=== PATIENT | female | born 1990 | race American Indian/Alaskan Native ===

== ENCOUNTER 2017-05-29 20:50 | Emergency (ER) | payer MEDICAID ==
[2017-05-29 22:02] LABS: Basophils % (Auto) 0.7 % (0.0-1.8); Hematocrit 38.1 % (30.3-42.9); Hemoglobin 13.1 gm/dl (10.1-14.3); Mean Corpuscular HGB Conc 34 % (30-34); Mean Corpuscular Hemoglobin 29 pg (28-32); Mean Corpuscular Volume 85 fl (79-97); Platelet Count 168 K/mm3 (140-440); Red Blood Count 4.49 M/mm3 (3.65-5.03); Red Cell Distribution Width 13.1 % (13.2-15.2); White Blood Count 3.5 K/mm3 (4.5-11.0)
[2017-05-29 22:20] LABS: Anion Gap 18 mmol/L; BUN/Creatinine Ratio 13.33; Blood Urea Nitrogen 8 mg/dL (7-17); Calcium 9.3 mg/dL (8.4-10.2); Carbon Dioxide 23 mmol/L (22-30); Chloride 101.3 mmol/L (98-107); Glucose 95 mg/dL (65-100); Sodium 138 mmol/L (137-145)
[2017-05-29 23:10] LABS: Bilirubin,Urine NEG (Negative); Blood,Urine LG (Negative); Ketones,Urine NEG (Negative); Leukocyte Esterase,Urine NEG (Negative); Mucus,Urine FEW /HPF; Nitrite,Urine NEG (Negative); Urobilinogen,Urine < 2.0 mg/dL (<2.0)
[2017-05-29 23:16] LABS: RBC,Urine > 182.0 /HPF (0.0-6.0)
[2017-05-30 02:22] VITALS: BP 109/72
--- NOTE | 2017-05-30 02:54 | Emergency Department Report ---
HPI - General Chief Complaint: Abdominal Pain Time Seen by Provider: 05/30/17 02:34 - HPI HPI: Patient complains of right upper quadrant pain, nausea. 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 She run out of her current pain medications as she came to the ED. Patient denies any vomiting, diarrhea or fever. Patient is currently on her cycle and states that the pain is worse on the cycle. ED Past Medical Hx - Past Medical History Hx Hypertension: No Hx CVA: No Hx Heart Attack/AMI: No Hx Congestive Heart Failure: No Hx Diabetes: Yes (GDM) Hx Deep Vein Thrombosis: No Hx Pulmonary Embolism: No Hx GERD: No Hx Liver Disease: No Hx Renal Disease: No Hx Sickle Cell Disease: No Hx Arthritis: No Hx Headaches / Migraines: No Hx Seizures: No Hx Kidney Stones: No Hx Psychiatric Treatment: No Hx Asthma: No Hx COPD: No Hx Tuberculosis: No Hx Dementia: No Hx HIV: No Additional medical history: Chronic Right knee pain,fatty liver - Surgical History Hx Coronary Stent: No Hx Open Heart Surgery: No Hx Pacemaker: No Hx Internal Defibrillator: No Hx Cholecystectomy: No Hx Appendectomy: No Hx Breast Surgery: No Additional Surgical History: R knee - Social History Smoking Status: Never Smoker Substance Use Type: None - Medications Home Medications: Home Medications Medication Instructions Recorded Confirmed Last Taken Type Pnv with Ca,No.72/Iron/FA 1 each PO QDAY #30 tablet 08/13/15 04/05/16 Unknown Rx [ Plus Tablet] Acetaminophen/Codeine [Tylenol 1 tab PO Q6H PRN #15 tab 10/16/15 04/05/16 Unknown Rx /Codeine # 3 tab] Nitrofurantoin [place]/M-Cryst 100 mg PO Q12HR #14 capsule 10/16/15 04/05/16 Unknown Rx [Macrobid CAP] Phenazopyridine [Pyridium] 200 mg PO BID #6 tab 10/16/15 04/05/16 Unknown Rx oxyCODONE /ACETAMINOPHEN [Percocet 2 tab PO Q6HR #30 tab 04/05/16 Unknown Rx 5/325] traMADol [Ultram] 50 mg PO Q6HR PRN #14 tablet 05/30/17 Unknown Rx ED Review of Systems ROS: Stated complaint: ABD PAIN Other details as noted in HPI Comment: All other systems reviewed and negative ENT: as per HPI Gastrointestinal: abdominal pain, nausea Physical Exam - Physical Exam Vital Signs: Vital Signs 05/29/17 05/30/17 21:36 02:18 Temperature 98 F 97.8 F Pulse Rate 78 82 Respiratory 18 16 Rate Blood Pressure 134/74 109/72 O2 Sat by Pulse 100 Oximetry Physical Exam: GENERAL: The patient is well-developed well-nourished [] HEENT: Normocephalic. Atraumatic. Extraocular motions are intact. Patient has moist mucous membranes. NECK: Supple. No meningitic signs are noted. There is no adenopathy noted. CHEST/LUNGS: Clear to auscultation. There is no respiratory distress noted. HEART/CARDIOVASCULAR: Regular. There is no tachycardia. There is no gallop rub or murmur. ABDOMEN: Abdomen is soft, nontender. Patient has normal bowel sounds. There is no abdominal distention. SKIN: There is no rash. There is no edema. There is no diaphoresis. NEURO: The patient is awake, alert, and oriented. The patient is cooperative. The patient has no focal neurologic deficits. The patient has normal speech. Cranial nerves II through XII grossly intact, no drift. Moves all extremities well MUSCULOSKELETAL: There is no evidence of acute injury. ED Course Vital Signs 05/29/17 05/30/17 21:36 02:18 Temperature 98 F 97.8 F Pulse Rate 78 82 Respiratory 18 16 Rate Blood Pressure 134/74 109/72 O2 Sat by Pulse 100 Oximetry ED Medical Decision Making - Lab Data Result diagrams: 05/29/17 21:47 05/29/17 21:47 Critical care attestation.: If time is entered above; I have spent that time in minutes in the direct care of this critically ill patient, excluding procedure time. ED Disposition Clinical Impression: Abdominal pain Qualifiers: Abdominal location: generalized Qualified Code(s): R10.84 - Generalized abdominal pain Disposition: -01 TO HOME OR SELFCARE Is pt being admited?: No Does the pt Need Aspirin: No Condition: Stable Instructions: Abdominal Pain (ED) Prescriptions: traMADol [Ultram] 50 mg PO Q6HR PRN #14 tablet PRN Reason: Pain Referrals: PRIMARY CARE, [Primary Care Provider] - 3-5 Days
== END 2017-05-30 03:34 | disposition home or self-care (01) ==
LOC: ED 20:50
DX: R10.84 Generalized abdominal pain (principal)
CPT/HCPCS: 36415; 80048; 81001; 85025

== ENCOUNTER 2017-08-19 14:01 | Emergency (ER) | payer MEDICAID ==
--- NOTE | 2017-08-19 14:56 | Emergency Department Report ---
Chief Complaint: Abdominal Pain Stated Complaint: ABDOMINAL PAIN Time Seen by Provider: 08/19/17 14:56 - HPI History of Present Illness: Patient reports that she is having abdominal pain and both sides of her abdomen with some nausea. She reports blurred vision and headache. She is also complaining of left back pain with increased urination. Denies any urinary burning frequency or urgency. She said her abdominal pain is 10 out of 10. She says she's had multiple head injuries in the past and she sees a neurologist off [facility] she says she gets frequent headaches and this one is located on the right side frontal ear for headache. She said that she had a test scan done last year but she doesn't know what is called. When I described the scan to her it sounds like she had a MRI. She said her doctor told her that the test said that she has acute wearing the back of her had but she didn't say anything else. Denies any vomiting. Denies any vaginal bleeding. - ROS Review of Systems: All systems are negative unless stated in HPI above - Exam Vital Signs: Vital Signs 08/19/17 14:16 Temperature 98.2 F Pulse Rate 77 Respiratory 18 Rate Blood Pressure 108/66 O2 Sat by Pulse 99 Oximetry Physical Exam: Gen: This is a 27-year-old female well-nourished well-developed in no acute distress. Abdomen: Patient reports tenderness to both sides of abdomen with palpation but she does not seem to be in any distress with palpation. No guarding or rebound tenderness. Normal bowel sounds in all quadrant. Mini neurological exam: GCS of 15, speech is clear and fluid, normal gait. Alert and oriented 3 MSE screening note: Focused history and physical exam performed. Due to findings the following was ordered: ED Medical Decision Making - Medical Decision Making MDM: Patient screened by provider in triage area. Appropriate protocol initiated and patient to be seen in main ED by Dr. DE LA CRUZ Disposition for MSE Condition: Stable Instructions: Abdominal Pain (ED)
[2017-08-19 15:13] LABS: Basophils % (Auto) 0.5 % (0.0-1.8); Eosinophils % (Auto) 2.4 % (0.0-4.3); Hematocrit 40.6 % (30.3-42.9); Hemoglobin 13.4 gm/dl (10.1-14.3); Mean Corpuscular HGB Conc 33 % (30-34); Mean Corpuscular Hemoglobin 28 pg (28-32); Mean Corpuscular Volume 85 fl (79-97); Platelet Count 182 K/mm3 (140-440); Red Blood Count 4.77 M/mm3 (3.65-5.03); Red Cell Distribution Width 12.9 % (13.2-15.2); White Blood Count 3.6 K/mm3 (4.5-11.0)
[2017-08-19 15:15] LABS: Alanine Aminotransferase 17 units/L (7-56); Albumin 4.3 g/dL (3.9-5); Alkaline Phosphatase 82 units/L (35-129); Anion Gap 17 mmol/L; BUN/Creatinine Ratio 10; Blood Urea Nitrogen 5 mg/dL (7-17); Calcium 8.9 mg/dL (8.4-10.2); Carbon Dioxide 24 mmol/L (22-30); Chloride 101.5 mmol/L (98-107); Glucose 89 mg/dL (65-100); Lipase 28 units/L (13-60); Potassium 3.8 mmol/L (3.6-5.0); Sodium 139 mmol/L (137-145); Total Protein 8.7 g/dL (6.3-8.2)
[2017-08-19 17:06] LABS: Bilirubin,Urine NEG (Negative); Blood,Urine NEG (Negative); Ketones,Urine NEG (Negative); Leukocyte Esterase,Urine TR (Negative); Mucus,Urine FEW /HPF; Nitrite,Urine NEG (Negative); Protein,Urine <15 mg/dL mg/dL (Negative); Urobilinogen,Urine < 2.0 mg/dL (<2.0)
[2017-08-19] MEDS ORDERED: NORCO 5/325 PO ONE (23:51)
[2017-08-19 23:53] VITALS: BP 100/66
--- NOTE | 2017-08-20 00:21 | Emergency Department Report ---
HPI - General Chief Complaint: Abdominal Pain Time Seen by Provider: 08/19/17 14:56 - HPI HPI: This is a 27-year-old female presents to the emergency department, dropped off by a friend, with complaints of a right-sided headache that she believes is a migraine, and some right upper quadrant abdominal pain. Patient says that the headache is been going on intermittently over the past 1- 2 weeks. She has a history of migraines and says that she usually will try Tylenol and Advil but it has only been giving some transient relief. She denies any slurred speech or any other neurological deficits. She says that she has been dealing with more chronic abdominal pains but usually affects her in the left flank and/or back but that has gone away and today it is causing some pain in the right upper quadrant. She denies any vaginal bleeding, vaginal discharge but does have some increased urination. She has a past medical history of gestational diabetes, fatty liver disease and these migraine headaches. She has a primary care physician but cannot currently with her name. No recent travel or sick contacts at home. ED Past Medical Hx - Past Medical History Hx Hypertension: No Hx CVA: No Hx Heart Attack/AMI: No Hx Congestive Heart Failure: No Hx Diabetes: Yes (GDM) Hx Deep Vein Thrombosis: No Hx Pulmonary Embolism: No Hx GERD: No Hx Liver Disease: No Hx Renal Disease: No Hx Sickle Cell Disease: No Hx Arthritis: No Hx Headaches / Migraines: No Hx Seizures: No Hx Kidney Stones: No Hx Psychiatric Treatment: No Hx Asthma: No Hx COPD: No Hx Tuberculosis: No Hx Dementia: No Hx HIV: No Additional medical history: Chronic Right knee pain,fatty liver - Surgical History Hx Coronary Stent: No Hx Open Heart Surgery: No Hx Pacemaker: No Hx Internal Defibrillator: No Hx Cholecystectomy: No Hx Appendectomy: No Hx Breast Surgery: No Additional Surgical History: R knee - Social History Smoking Status: Unknown if ever smoked Substance Use Type: None - Medications Home Medications: Home Medications Medication Instructions Recorded Confirmed Last Taken Type Pnv,Calcium 72/Iron/Folic Acid 1 each PO QDAY #30 tablet 08/13/15 04/05/16 Unknown Rx [ Plus Tablet] Acetaminophen/Codeine [Tylenol 1 tab PO Q6H PRN #15 tab 10/16/15 04/05/16 Unknown Rx /Codeine # 3 tab] Nitrofurantoin [place]/M-Cryst 100 mg PO Q12HR #14 capsule 10/16/15 04/05/16 Unknown Rx [Macrobid CAP] Phenazopyridine [Pyridium] 200 mg PO BID #6 tab 10/16/15 04/05/16 Unknown Rx oxyCODONE /ACETAMINOPHEN [Percocet 2 tab PO Q6HR #30 tab 04/05/16 Unknown Rx 5/325] traMADol [Ultram] 50 mg PO Q6HR PRN #14 tablet 05/30/17 Unknown Rx ED Review of Systems ROS: Stated complaint: ABDOMINAL PAIN Other details as noted in HPI Comment: All other systems reviewed and negative Constitutional: denies: chills, fever Eyes: denies: eye pain, eye discharge, vision change ENT: denies: ear pain, throat pain Respiratory: denies: cough, shortness of breath, wheezing Cardiovascular: denies: chest pain, palpitations Gastrointestinal: abdominal pain. denies: nausea, vomiting Genitourinary: frequency. denies: dysuria, discharge Musculoskeletal: denies: arthralgia, myalgia Skin: denies: rash, lesions Neurological: headache. denies: numbness, paresthesias Physical Exam - Physical Exam Vital Signs: Vital Signs 08/19/17 08/19/17 08/19/17 14:16 22:19 23:53 Temperature 98.2 F 98.6 F Pulse Rate 77 81 73 Respiratory 18 16 16 Rate Blood Pressure 108/66 Blood Pressure 123/80 100/66 [Right] O2 Sat by Pulse 99 98 100 Oximetry 08/19/17 23:56 Temperature Pulse Rate Respiratory 16 Rate Blood Pressure Blood Pressure [Right] O2 Sat by Pulse Oximetry Physical Exam: GENERAL: The patient is well-developed well-nourished. HENT: Normocephalic. Atraumatic. Patient has moist mucous membranes. EYES: Extraocular motions are intact. Pupils equal reactive to light bilaterally. No nystagmus. NECK: Supple. Trachea is midline. CHEST/LUNGS: Clear to auscultation. There is no respiratory distress noted. HEART/CARDIOVASCULAR: Regular. There is no tachycardia. There is no gallop rub or murmur. ABDOMEN: Abdomen is soft. Right upper quadrant tenderness to palpation. No guarding or rebound tenderness. Patient has normal bowel sounds. There is no abdominal distention. SKIN: Skin is warm and dry. NEURO: The patient is awake, alert, and oriented. The patient is cooperative. The patient has no focal neurologic deficits. The patient has normal speech. MUSCULOSKELETAL: There is no tenderness or deformity. There is no limitation range of motion. There is no evidence of acute injury. ED Course Vital Signs 08/19/17 08/19/17 08/19/17 14:16 22:19 23:53 Temperature 98.2 F 98.6 F Pulse Rate 77 81 73 Respiratory 18 16 16 Rate Blood Pressure 108/66 Blood Pressure 123/80 100/66 [Right] O2 Sat by Pulse 99 98 100 Oximetry 08/19/17 23:56 Temperature Pulse Rate Respiratory 16 Rate Blood Pressure Blood Pressure [Right] O2 Sat by Pulse Oximetry ED Medical Decision Making - Lab Data Result diagrams: 08/19/17 14:44 08/19/17 14:44 - Radiology Data Radiology results: report reviewed EXAM: US ABDOMEN LIMITED HISTORY: upper abd pain TECHNIQUE: Routine sonographic evaluation was obtained of the right upper outer quadrant. FINDINGS: The gallbladder is normal in size and wall thickness. Stones are not seen. The common bile duct measures 3.5 millimeters which is normal. The pancreas is not well visualized because of bowel gas. The liver is normal size and reveals diffusely increased echotexture compatible with hepatic steatosis. There are no focal hepatic lesions. Free fluid is not seen. IMPRESSION: Normal-appearing gallbladder and biliary tree. Hepatic steatosis. Transcribed By: PACO Dictated By: PENNY CISNEROS MD Electronically Authenticated By: PENNY CISNEROS MD Signed Date/Time: 08/19/172049 - Medical Decision Making 27-year-old female presents with a right-sided headache that she feels is consistent with previous migraine headaches. She does not have any focal, motor or sensory deficits in her cranial nerves are intact. She also complains of some right upper quadrant pain which is a change for her as she says she has been having some more chronic left sided abdominal pains but that has not bother her today. Her labs are mostly unremarkable. No leukocytosis, elect to let upper maladies, renal insufficiency or glucose abnormalities. Normal belly labs including bilirubin, lipase and LFTs. Since the patient has no deficits and her headache is consistent with previous migraines, did not feel that CT imaging of the head was necessary at this time. An ultrasound was done of the right upper quadrant that did not show any abnormalities. She was given a single [place] and upon reevaluation she says she is feeling improved. She says that she has good follow-up with primary care and was given a referral for neurology to discuss her migraines. She will return to the ER if any worsening of her symptoms or any acute distress. - Differential Diagnosis migraine, tension headache, cluster headache, cholelithiasis, cholecystitis Critical Care Time: No Critical care attestation.: If time is entered above; I have spent that time in minutes in the direct care of this critically ill patient, excluding procedure time. ED Disposition Clinical Impression: Headache Qualifiers: Headache type: unspecified Headache chronicity pattern: episodic headache Intractability: not intractable Qualified Code(s): R51 - Headache Abdominal pain Qualifiers: Abdominal location: right upper quadrant Qualified Code(s): R10.11 - Right upper quadrant pain Disposition: TO HOME OR SELFCARE Is pt being admited?: No Condition: Stable Instructions: Migraine Headache (ED), Acute Headache (ED), Abdominal Pain (ED) Additional Instructions: Please follow-up with your primary care physician in the next few days. I have also given urinary referral for a local neurologist, Dr. Shen, to follow up regarding your migraine headaches. Return to the emergency Department with any worsening of your symptoms or any acute distress. Referrals: MAX BOLAÑOS MD [Primary Care Provider] - 3-5 Days LINDA SHEN MD [Staff Physician] - 3-5 Days Time of Disposition: 01:16
--- NOTE | 2017-08-20 00:55 | Ultrasound Report ---
FINAL REPORT EXAM: US ABDOMEN LIMITED HISTORY: upper abd pain TECHNIQUE: Routine sonographic evaluation was obtained of the right upper outer quadrant. FINDINGS: The gallbladder is normal in size and wall thickness. Stones are not seen. The common bile duct measures 3.5 millimeters which is normal. The pancreas is not well visualized because of bowel gas. The liver is normal size and reveals diffusely increased echotexture compatible with hepatic steatosis. There are no focal hepatic lesions. Free fluid is not seen. IMPRESSION: Normal-appearing gallbladder and biliary tree. Hepatic steatosis.
== END 2017-08-20 01:32 | disposition home or self-care (01) ==
LOC: ED 14:01
DX: R10.11 Right upper quadrant pain (principal); R51 Headache
CPT/HCPCS: 36415; 76705; 80053; 81001; 81025; 82962; 83690; 85025

== ENCOUNTER 2018-02-24 13:21 | Emergency (ER) | payer MEDICAID ==
[2018-02-24] MEDS ORDERED: TYLENOL PO ONE (15:19)
--- NOTE | 2018-02-24 15:21 | Emergency Department Report ---
ED Lower Extremity HPI - General Chief Complaint: Extremity Injury, Lower Stated Complaint: LOWER LEFT LEG PAIN Time Seen by Provider: 02/24/18 15:16 Source: patient Mode of arrival: Ambulatory Limitations: No Limitations - History of Present Illness Initial Comments: This is a 27-year-old female nontoxic, well nourished in appearance, no acute signs of distress presents to the ED with c/o of left knee and left ankle pain x1 day. Patient stated that she was walking down 2 flight of stairs and twisted left ankle and landed on left knee. Patient stated that she did not have any trauma to the head or any other extremities. Patient denies any joint redness, joint swelling, fever, chills, nausea, vomiting, chest pain or shortness breath. Patient denies abnormal or decreased gait. Patient stated allergies to Ibuprofen. Denies significant PMH. MD Complaint: knee injury, ankle injury -: days(s) (1) Injury: Knee: Left, Ankle: Left Type of Injury: blunt Place: home Severity: mild Severity scale (0 -10): 8 Improves With: immobilization Worsens With: movement, palpation Context: fall, direct blow Associated Symptoms: swelling, able to partially bear weight, ambulatory. denies: snap/pop sensation, numbness, tingling, unable to bear weight - Related Data Previous Rx's Medication Instructions Recorded Last Taken Type Pnv,Calcium 72/Iron/Folic Acid 1 each PO QDAY #30 tablet 08/13/15 Unknown Rx [ Plus Tablet] Acetaminophen/Codeine [Tylenol 1 tab PO Q6H PRN #15 tab 10/16/15 Unknown Rx /Codeine # 3 tab] Nitrofurantoin [place]/M-Cryst 100 mg PO Q12HR #14 capsule 10/16/15 Unknown Rx [Macrobid CAP] Phenazopyridine [Pyridium] 200 mg PO BID #6 tab 10/16/15 Unknown Rx oxyCODONE /ACETAMINOPHEN [Percocet 2 tab PO Q6HR #30 tab 04/05/16 Unknown Rx 5/325] traMADol [Ultram] 50 mg PO Q6HR PRN #14 tablet 05/30/17 Unknown Rx Acetaminophen 500 mg PO Q8H PRN #30 tablet 02/24/18 Unknown Rx Allergies Allergy/AdvReac Type Severity Reaction Status Date / Time ibuprofen [From Motrin] AdvReac Vomiting Verified 08/13/15 06:23 ED Review of Systems ROS: Stated complaint: LOWER LEFT LEG PAIN Other details as noted in HPI Constitutional: denies: chills, fever Eyes: denies: eye pain, eye discharge, vision change ENT: denies: ear pain, throat pain Respiratory: denies: cough, shortness of breath, wheezing Cardiovascular: denies: chest pain, palpitations Endocrine: no symptoms reported Gastrointestinal: denies: abdominal pain, nausea, diarrhea Genitourinary: denies: urgency, dysuria, discharge Musculoskeletal: arthralgia. denies: back pain, joint swelling Skin: denies: rash, lesions Neurological: denies: headache, weakness, paresthesias Psychiatric: denies: anxiety, depression Hematological/Lymphatic: denies: easy bleeding, easy bruising ED Past Medical Hx - Past Medical History Hx Hypertension: No Hx CVA: No Hx Heart Attack/AMI: No Hx Congestive Heart Failure: No Hx Diabetes: Yes (GDM) Hx Deep Vein Thrombosis: No Hx Pulmonary Embolism: No Hx GERD: No Hx Liver Disease: No Hx Renal Disease: No Hx Sickle Cell Disease: No Hx Arthritis: No Hx Headaches / Migraines: No Hx Seizures: No Hx Kidney Stones: No Hx Psychiatric Treatment: No Hx Asthma: No Hx COPD: No Hx Tuberculosis: No Hx Dementia: No Hx HIV: No Additional medical history: Chronic Right knee pain,fatty liver - Surgical History Hx Coronary Stent: No Hx Open Heart Surgery: No Hx Pacemaker: No Hx Internal Defibrillator: No Hx Cholecystectomy: No Hx Appendectomy: No Hx Breast Surgery: No Additional Surgical History: R knee - Social History Smoking Status: Never Smoker Substance Use Type: None - Medications Home Medications: Home Medications Medication Instructions Recorded Confirmed Last Taken Type Pnv,Calcium 72/Iron/Folic Acid 1 each PO QDAY #30 tablet 08/13/15 04/05/16 Unknown Rx [ Plus Tablet] Acetaminophen/Codeine [Tylenol 1 tab PO Q6H PRN #15 tab 10/16/15 04/05/16 Unknown Rx /Codeine # 3 tab] Nitrofurantoin [place]/M-Cryst 100 mg PO Q12HR #14 capsule 10/16/15 04/05/16 Unknown Rx [Macrobid CAP] Phenazopyridine [Pyridium] 200 mg PO BID #6 tab 10/16/15 04/05/16 Unknown Rx oxyCODONE /ACETAMINOPHEN [Percocet 2 tab PO Q6HR #30 tab 04/05/16 Unknown Rx 5/325] traMADol [Ultram] 50 mg PO Q6HR PRN #14 tablet 05/30/17 Unknown Rx Acetaminophen 500 mg PO Q8H PRN #30 tablet 02/24/18 Unknown Rx ED Physical Exam - General Limitations: No Limitations General appearance: alert, in no apparent distress - Head Head exam: Present: atraumatic, normocephalic - Eye Eye exam: Present: normal appearance Pupils: Present: normal accommodation - ENT ENT exam: Present: normal exam, mucous membranes moist - Neck Neck exam: Present: normal inspection, full ROM. Absent: tenderness, meningismus, lymphadenopathy - Respiratory Respiratory exam: Present: normal lung sounds bilaterally. Absent: respiratory distress, wheezes, rales, rhonchi, stridor, chest wall tenderness, accessory muscle use, decreased breath sounds, prolonged expiratory - Cardiovascular Cardiovascular Exam: Present: regular rate, normal rhythm, normal heart sounds. Absent: systolic murmur, diastolic murmur, rubs, gallop - GI/Abdominal GI/Abdominal exam: Present: soft, normal bowel sounds. Absent: distended, tenderness, guarding, rebound, rigid, diminished bowel sounds - Rectal Rectal exam: Present: deferred - Extremities Exam Extremities exam: Present: normal inspection, full ROM, tenderness, normal capillary refill, joint swelling. Absent: pedal edema, calf tenderness - Expanded Lower Extremity Exam Left Hip exam: Present: normal inspection, full ROM. Absent: tenderness, swelling Upper Leg exam: Present: normal inspection, full ROM. Absent: tenderness, swelling Knee exam: Present: normal inspection, full ROM, tenderness, swelling, full knee extension. Absent: abrasion, laceration, ecchymosis, deformity, crepidus, dislocation, erythema, effusion, pain w/ pronation/supination, posterior draw sign, pain/laxity with valgus, pain/laxity with varus Lower Leg exam: Present: normal inspection, full ROM. Absent: tenderness, swelling, abrasion, laceration, ecchymosis, deformity, crepidus, dislocation, erythema, palpable cord, Korey's sign Ankle exam: Present: normal inspection, full ROM, tenderness, swelling. Absent : abrasion, laceration, ecchymosis, deformity, crepidus, dislocation, erythema, anterior draw sign Foot/Toe exam: Present: normal inspection, full ROM. Absent: tenderness, swelling Neuro vascular tendon exam: Present: no vascular compromise. Absent: pulse deficit, abnormal cap refill, motor deficit, sensory deficit, tendon deficit, extremity cold to touch, pallor, abnormal 2-point discrimination, decreased fine /light touch, foot drop, peroneal nerve deficit, significant pain with passive ROM of distal joint Gait: Positive: observed and limited by pain - Back Exam Back exam: Present: normal inspection, full ROM. Absent: tenderness, CVA tenderness (R), CVA tenderness (L), paraspinal tenderness, vertebral tenderness - Neurological Exam Neurological exam: Present: alert, oriented X3, normal gait - Psychiatric Psychiatric exam: Present: normal affect, normal mood - Skin Skin exam: Present: warm, dry, intact, normal color. Absent: rash ED Course Vital Signs 02/24/18 13:32 Temperature 98.3 F Pulse Rate 82 Respiratory 16 Rate Blood Pressure 111/64 O2 Sat by Pulse 99 Oximetry - Reevaluation(s) Reevaluation #1: 02/24/18 15:49 Patient is speaking in full sentences with no signs of distress noted. ED Lower Extremity MDM - Medical Decision Making This is a 27-year-old female that presents with left knee and ankle strain. Patient is stable and was examined by me. I referred patient to an orthopedic doctor for further evaluation for possible MRI. X-ray has been obtained and dictated by the radiologist. Patient is notified of the x-ray report with noted by the patient. Patient does have normal gait with no tenderness and no joint swelling. No ecchymosis. no joint redness or swelling. Not warm to touch. No signs of cellulites present. Patient received a knee immobilize and crutches and was educated by RN how to use crutches Patient was instructed to RICE therapy. Patient received Tylenol for pain. Patient is discharged with Tylenol. At time of discharge, the patient does not seem toxic or ill in appearance. No acute signs of distress noted. Patient agrees to discharge treatment plan of care. No further questions noted by the patient. Critical care attestation.: If time is entered above; I have spent that time in minutes in the direct care of this critically ill patient, excluding procedure time. ED Disposition Clinical Impression: Strain of left knee Qualifiers: Encounter type: initial encounter Qualified Code(s): S86.912A - Strain of unspecified muscle(s) and tendon(s) at lower leg level, left leg, initial encounter Left ankle sprain Qualifiers: Encounter type: initial encounter Involved ligament of ankle: unspecified ligament Qualified Code(s): S93.402A - Sprain of unspecified ligament of left ankle, initial encounter Disposition: TO HOME OR SELFCARE Is pt being admited?: No Does the pt Need Aspirin: No Condition: Stable Instructions: Knee Pain (ED), Knee Immobilizer (ED), RICE Therapy (ED), Acetaminophen (By mouth), Ankle Sprain (ED), Crutch Instructions (ED) Additional Instructions: Follow-up with a orthopedic doctor in 3-5 days or if symptoms worsen and continue return to emergency room as soon as possible. Prescriptions: Acetaminophen 500 mg PO Q8H PRN #30 tablet PRN Reason: Pain Referrals: PRIMARY CAREMD [Primary Care Provider] - 3-5 Days PENNY ZHENG MD [Staff Physician] - 3-5 Days [facility] [Outside] - 3-5 Days [facility] [Outside] - 3-5 Days Forms: Work/School Release Form(ED)
--- NOTE | 2018-02-24 16:55 | XRay Report ---
FINAL REPORT PROCEDURE: XR ANKLE 3+V LT TECHNIQUE: LEFT ankle radiographs, AP, lateral, and oblique views. CPT 70894 HISTORY: knee/ankle pain s/p fall COMPARISON: No prior studies are available for comparison. FINDINGS: Fracture (s) and/or Dislocation(s): None. Alignment: Normal. Joint space(s): Normal. Soft tissues: Normal. Bone mineralization: Normal. Foreign bodies: None. Calcaneal spurring: None. IMPRESSION: Negative examination.
--- NOTE | 2018-02-24 16:57 | XRay Report ---
FINAL REPORT PROCEDURE: XR KNEE 3V LT TECHNIQUE: Left knee radiographs, AP, lateral and oblique views. CPT 45843 HISTORY: knee/ankle pain s/p fall COMPARISON: No prior studies are available for comparison. FINDINGS: Fracture (s) and/or Dislocation(s): None . Alignment: Normal . Joint space(s): Normal . Soft tissues: Normal . Bone mineralization: Normal . Foreign bodies: None . IMPRESSION: Negative examination.
[2018-02-24 18:07] VITALS: BP 122/80
== END 2018-02-24 17:56 | disposition home or self-care (01) ==
LOC: ED 13:21
DX: S93.402A Sprain of unspecified ligament of left ankle, initial encounter (principal); S86.912A Strain of unspecified muscle(s) and tendon(s) at lower leg level, left leg, initial encounter; E11.9 Type 2 diabetes mellitus without complications; Z88.8 Allergy status to other drugs, medicaments and biological substances

== ENCOUNTER 2018-03-27 00:15 | Emergency (ER) | payer MEDICAID ==
[2018-03-27] MEDS ORDERED: TYLENOL ONE (02:09)
[2018-03-27] MEDS ORDERED: TYLENOL PO ONE (02:09)
[2018-03-27] MEDS ORDERED: NACL 0.9% 1000 ML 1,000 ML IV ONE (02:10)
[2018-03-27 03:13] LABS: Basophils % (Auto) 0.6 % (0.0-1.8); Eosinophils # (Auto) 0.1 K/mm3 (0.0-0.4); Hematocrit 37.5 % (30.3-42.9); Hemoglobin 12.7 gm/dl (10.1-14.3); Lymphocytes # (Auto) 1.5 K/mm3 (1.2-5.4); Lymphocytes % (Auto) 39.3 % (13.4-35.0); Mean Corpuscular HGB Conc 34 % (30-34); Mean Corpuscular Hemoglobin 29 pg (28-32); Mean Corpuscular Volume 84 fl (79-97); Monocytes # (Auto) 0.4 K/mm3 (0.0-0.8); Monocytes % (Auto) 10.9 % (0.0-7.3); Platelet Count 210 K/mm3 (140-440); Red Blood Count 4.47 M/mm3 (3.65-5.03); Red Cell Distribution Width 13.5 % (13.2-15.2)
[2018-03-27 03:55] LABS: Alanine Aminotransferase 18 units/L (7-56); Albumin 4.2 g/dL (3.9-5); BUN/Creatinine Ratio 10; Blood Urea Nitrogen 6 mg/dL (7-17); Calcium 8.9 mg/dL (8.4-10.2); Hemolysis Index 11
[2018-03-27 03:58] LABS: Amorphous Crystals,Urine Few; Bacteria,Urine 1+ /HPF (Negative); Bilirubin,Urine NEG (Negative); Blood,Urine NEG (Negative); Color,Urine Yellow (Yellow); Hyaline Casts,Urine 1 /LPF; Mucus,Urine 2+ /HPF; Protein,Urine <15 mg/dL mg/dL (Negative); Urobilinogen,Urine < 2.0 mg/dL (<2.0)
[2018-03-27 06:40] LABS: HCG Qualitative,Urine Negative (Negative)
--- NOTE | 2018-03-27 08:54 | Cat Scan Report ---
CT ABDOMEN PELVIS WITH CONTRAST: HISTORY: Left upper quadrant abdominal pain. COMPARISON: none. TECHNIQUE: Helical CT in 1.25mm intervals following IV contrast. Sagittal and coronal reconstructions. FINDINGS: Lung bases: Normal. Liver: Normal. Biliary system: Normal. Pancreas: Normal. Spleen: Normal. Kidneys/ureters/bladder: Normal. Adrenal glands: Normal. Aorta: Normal. Intestines: Normal. Appendix: Normal. Pelvic viscera: Normal. Ascites: None. Adenopathy: None. Musculoskeletal: Normal. IMPRESSION: Unremarkable CT scan of the abdomen and pelvis with contrast.
--- NOTE | 2018-03-27 11:28 | Emergency Department Report ---
ED General Adult HPI - General Chief complaint: Abdominal Pain Stated complaint: ABD PAIN Time Seen by Provider: 03/27/18 06:20 Source: patient Mode of arrival: Ambulatory Limitations: No Limitations - History of Present Illness Initial comments: 27-year-old female complains of epigastric discomfort. She initially stated that it was somewhat radiating superiorly in triage but denied this to me. She denies any radiation to her back or her chest. She states the abdominal discomfort began last night and was not immediately post prandial. She's had a few bouts of diarrhea but no vomiting. She denies any signs of GI bleeding. She denies fever or chills. -: hour(s) Location: abdomen Radiation: non-radiation Severity scale (0 -10): 6 Quality: aching Consistency: intermittent Improves with: none Worsens with: none Associated Symptoms: denies other symptoms Treatments Prior to Arrival: none - Related Data Previous Rx's Medication Instructions Recorded Last Taken Type Pnv,Calcium 72/Iron/Folic Acid 1 each PO QDAY #30 tablet 08/13/15 Unknown Rx [ Plus Tablet] Acetaminophen/Codeine [Tylenol 1 tab PO Q6H PRN #15 tab 10/16/15 Unknown Rx /Codeine # 3 tab] Nitrofurantoin Gibson/M-Cryst 100 mg PO Q12HR #14 capsule 10/16/15 Unknown Rx [Macrobid CAP] Phenazopyridine [Pyridium] 200 mg PO BID #6 tab 10/16/15 Unknown Rx oxyCODONE /ACETAMINOPHEN [Percocet 2 tab PO Q6HR #30 tab 04/05/16 Unknown Rx 5/325] traMADol [Ultram] 50 mg PO Q6HR PRN #14 tablet 05/30/17 Unknown Rx Acetaminophen 500 mg PO Q8H PRN #30 tablet 02/24/18 Unknown Rx Sulfamethoxazole/Trimethoprim 1 each PO BID #14 tablet 03/27/18 Unknown Rx [Bactrim DS TAB] traMADol [Ultram] 50 mg PO Q6HR PRN #14 tablet 03/27/18 Unknown Rx Allergies Allergy/AdvReac Type Severity Reaction Status Date / Time ibuprofen [From Motrin] AdvReac Vomiting Verified 08/13/15 06:23 ED Review of Systems ROS: Stated complaint: ABD PAIN Other details as noted in HPI Constitutional: denies: chills, fever Eyes: denies: eye pain, eye discharge, vision change ENT: denies: ear pain, throat pain Respiratory: denies: cough, shortness of breath, wheezing Cardiovascular: denies: chest pain, palpitations Endocrine: no symptoms reported Gastrointestinal: abdominal pain, diarrhea. denies: nausea Genitourinary: denies: urgency, dysuria, discharge Musculoskeletal: denies: back pain, joint swelling, arthralgia Skin: denies: rash, lesions Neurological: denies: headache, weakness, paresthesias Psychiatric: denies: anxiety, depression Hematological/Lymphatic: denies: easy bleeding, easy bruising ED Past Medical Hx - Past Medical History Hx Hypertension: No Hx CVA: No Hx Heart Attack/AMI: No Hx Congestive Heart Failure: No Hx Diabetes: Yes (GDM) Hx Deep Vein Thrombosis: No Hx Pulmonary Embolism: No Hx GERD: No Hx Liver Disease: No Hx Renal Disease: No Hx Sickle Cell Disease: No Hx Arthritis: No Hx Headaches / Migraines: No Hx Seizures: No Hx Kidney Stones: No Hx Psychiatric Treatment: No Hx Asthma: No Hx COPD: No Hx Tuberculosis: No Hx Dementia: No Hx HIV: No Additional medical history: Chronic Right knee pain,fatty liver - Surgical History Past Surgical History?: Yes Hx Coronary Stent: No Hx Open Heart Surgery: No Hx Pacemaker: No Hx Internal Defibrillator: No Hx Cholecystectomy: No Hx Appendectomy: No Hx Breast Surgery: No Additional Surgical History: R knee, ?2006 - Social History Smoking Status: Never Smoker Substance Use Type: None - Medications Home Medications: Home Medications Medication Instructions Recorded Confirmed Last Taken Type Pnv,Calcium 72/Iron/Folic Acid 1 each PO QDAY #30 tablet 08/13/15 04/05/16 Unknown Rx [ Plus Tablet] Acetaminophen/Codeine [Tylenol 1 tab PO Q6H PRN #15 tab 10/16/15 04/05/16 Unknown Rx /Codeine # 3 tab] Nitrofurantoin Gibson/M-Cryst 100 mg PO Q12HR #14 capsule 10/16/15 04/05/16 Unknown Rx [Macrobid CAP] Phenazopyridine [Pyridium] 200 mg PO BID #6 tab 10/16/15 04/05/16 Unknown Rx oxyCODONE /ACETAMINOPHEN [Percocet 2 tab PO Q6HR #30 tab 04/05/16 Unknown Rx 5/325] traMADol [Ultram] 50 mg PO Q6HR PRN #14 tablet 05/30/17 Unknown Rx Acetaminophen 500 mg PO Q8H PRN #30 tablet 02/24/18 Unknown Rx Sulfamethoxazole/Trimethoprim 1 each PO BID #14 tablet 03/27/18 Unknown Rx [Bactrim DS TAB] traMADol [Ultram] 50 mg PO Q6HR PRN #14 tablet 03/27/18 Unknown Rx ED Physical Exam - General Limitations: No Limitations General appearance: alert, in no apparent distress - Head Head exam: Present: atraumatic, normocephalic - Eye Eye exam: Present: normal appearance, PERRL, EOMI. Absent: scleral icterus - ENT ENT exam: Present: mucous membranes moist - Neck Neck exam: Present: normal inspection. Absent: tenderness, meningismus - Respiratory Respiratory exam: Present: normal lung sounds bilaterally. Absent: respiratory distress - Cardiovascular Cardiovascular Exam: Present: regular rate, normal rhythm. Absent: systolic murmur, diastolic murmur, rubs, gallop - GI/Abdominal GI/Abdominal exam: Present: soft, normal bowel sounds. Absent: distended, tenderness, guarding, rebound, rigid - Extremities Exam Extremities exam: Present: normal inspection - Back Exam Back exam: Present: normal inspection - Neurological Exam Neurological exam: Present: alert, oriented X3, CN II-XII intact. Absent: motor sensory deficit - Psychiatric Psychiatric exam: Present: normal affect, normal mood - Skin Skin exam: Present: warm, dry, intact, normal color. Absent: rash ED Course Vital Signs 03/27/18 03/27/18 03/27/18 01:11 02:06 04:06 Temperature 98.4 F 98.4 F Pulse Rate 82 77 Respiratory 18 18 18 Rate Blood Pressure 101/63 101/63 Blood Pressure [Right] O2 Sat by Pulse 99 99 Oximetry 03/27/18 03/27/18 07:02 07:54 Temperature 98.2 F Pulse Rate 77 Respiratory 18 18 Rate Blood Pressure Blood Pressure 109/58 [Right] O2 Sat by Pulse 99 100 Oximetry - Reevaluation(s) Reevaluation #1: On reexamination the patient has no complaints. She is entirely comfortable. She is appropriate for outpatient management. I would think this most likely that she had some enteritis considering her diarrhea. She has had no recurrent diarrhea since she is been here however. 03/27/18 12:11 ED Medical Decision Making - Lab Data Result diagrams: 03/27/18 02:47 03/27/18 02:47 Laboratory Results - last 24 hr 03/27/18 03/27/18 03/27/18 00:33 02:47 02:47 WBC 3.9 L RBC 4.47 Hgb 12.7 Hct 37.5 MCV 84 MCH 29 MCHC 34 RDW 13.5 Plt Count 210 Lymph % (Auto) 39.3 H Gibson % (Auto) 10.9 H Eos % (Auto) 2.0 Baso % (Auto) 0.6 Lymph # 1.5 Gibson # 0.4 Eos # 0.1 Baso # 0.0 Seg Neutrophils % 47.2 Seg Neutrophils # 1.8 Sodium 140 Potassium 4.3 Chloride 103.9 Carbon Dioxide 24 Anion Gap 16 BUN 6 L Creatinine 0.6 L Estimated GFR > 60 BUN/Creatinine Ratio 10 Glucose 125 H Calcium 8.9 Total Bilirubin 0.30 AST 19 ALT 18 Alkaline Phosphatase 80 Total Protein 8.7 H Albumin 4.2 Albumin/Globulin Ratio 0.9 Urine Color Urine Turbidity Urine pH Ur Specific [place] Urine Protein Urine Glucose (UA) Urine Ketones Urine Blood Urine Nitrite Urine Bilirubin Urine Urobilinogen Ur Leukocyte Esterase Urine WBC (Auto) Urine RBC (Auto) U Epithel Cells (Auto) Urine Bacteria (Auto) Amorphous Crystals Hyaline Casts Urine Mucus Urine HCG, Qual Negative 03/27/18 03:21 WBC RBC Hgb Hct MCV MCH MCHC RDW Plt Count Lymph % (Auto) Gibson % (Auto) Eos % (Auto) Baso % (Auto) Lymph # Gibson # Eos # Baso # Seg Neutrophils % Seg Neutrophils # Sodium Potassium Chloride Carbon Dioxide Anion Gap BUN Creatinine Estimated GFR BUN/Creatinine Ratio Glucose Calcium Total Bilirubin AST ALT Alkaline Phosphatase Total Protein Albumin Albumin/Globulin Ratio Urine Color Yellow Urine Turbidity Slightly cloudy Urine pH 5.0 Ur Specific [place] 1.020 Urine Protein <15 mg/dl Urine Glucose (UA) Neg Urine Ketones Neg Urine Blood Neg Urine Nitrite Neg Urine Bilirubin Neg Urine Urobilinogen < 2.0 Ur Leukocyte Esterase Lg Urine WBC (Auto) 14.0 H Urine RBC (Auto) 5.0 U Epithel Cells (Auto) 16.0 H Urine Bacteria (Auto) 1+ Amorphous Crystals Few Hyaline Casts 1 Urine Mucus 2+ Urine HCG, Qual - EKG Data -: EKG Interpreted by Me EKG shows normal: sinus rhythm, axis, intervals, QRS complexes, ST-T waves Rate: normal - EKG Data Interpretation: no acute changes - Radiology Data Radiology results: report reviewed (CT abdomen and pelvis showed no acute process) Critical care attestation.: If time is entered above; I have spent that time in minutes in the direct care of this critically ill patient, excluding procedure time. ED Disposition Clinical Impression: UTI (urinary tract infection) Qualifiers: Urinary tract infection type: site unspecified Hematuria presence: without hematuria Qualified Code(s): N39.0 - Urinary tract infection, site not specified Abdominal pain Qualifiers: Abdominal location: upper abdomen, unspecified Qualified Code(s): R10.10 - Upper abdominal pain, unspecified Diarrhea Qualifiers: Diarrhea type: unspecified type Qualified Code(s): R19.7 - Diarrhea, unspecified Disposition: DC-01 TO HOME OR SELFCARE Is pt being admited?: No Does the pt Need Aspirin: No Condition: Stable Instructions: Abdominal Pain (ED), Acute Diarrhea (ED) Additional Instructions: He should follow up on your urine culture tests. There is a possibility of urinary tract infection. Rx antibiotics and something for pain. Urine culture results will be available in 2-3 days. Return symptoms worsen any acute change or problem, fever or chills. Prescriptions: Sulfamethoxazole/Trimethoprim [Bactrim DS TAB] 1 each PO BID #14 tablet traMADol [Ultram] 50 mg PO Q6HR PRN #14 tablet PRN Reason: Pain Referrals: PRIMARY CARE [Primary Care Provider] - 3-5 Days [facility] [Provider Group] - 2-3 Days Time of Disposition: 12:13
[2018-03-27 13:17] VITALS: BP 106/64
== END 2018-03-27 13:19 | disposition home or self-care (01) ==
LOC: ED 00:15
DX: N39.0 Urinary tract infection, site not specified (principal); E11.9 Type 2 diabetes mellitus without complications
CPT/HCPCS: 36415; 74177; 80053; 81001; 81025; 85025; 87086; 93005; 93010; 99284; Q9967